=== PATIENT | female | born 1940 | race Caucasian/White ===

== ENCOUNTER 2021-04-17 15:41 | Emergency (ER) | payer MEDICARE, MEDICAID ==
[~2021-04-17] VITALS: Ht 157.5 cm; Wt 80.0 kg
[2021-04-17] MEDS ORDERED: ASPIRIN 325MG EC TABLET PO ONE (16:00)
[2021-04-17 16:19] LABS: BASOPHILS % 0.5 % (0.0-2.0); EOSINOPHILS % 1.2 % (0.0-5.0); HEMATOCRIT. 35.4 % (36.0-48.0); HEMOGLOBIN. 11.5 g/dL (12.0-16.0); LYMPHOCYTES % 22.8 % (20.0-50.0); MEAN CORPUSCULAR HEMOGLOBIN 27.6 pg (28.0-32.0); MEAN CORPUSCULAR VOLUME 84.8 fL (81.0-99.0); MEAN PLATELET VOLUME 7.2 fl (7.4-10.4); MONOCYTES % 5.2 % (2.0-8.0); NEUTROPHILS % 70.3 % (40.0-76.0); PLATELET 321 x1000/uL (130-400); RED BLOOD CELL COUNT 4.18 mill/uL (4.2-5.4); RED CELL DISTRIBUTION WIDTH 15.5 % (11.6-14.6)
[2021-04-17 16:23] LABS: CHLORIDE 106 mEq/L (98-107)
[2021-04-17] MEDS ORDERED: LEVETIRACETAM 500 MG in SODIUM CHLORIDE 0.9% 100 ML IV SCH (17:00)
[2021-04-17] MEDS ORDERED: DESMOPRESSIN ACETATE IV NR (17:00)
[2021-04-17] MEDS ORDERED: SODIUM CHLORIDE 0.9% IV NR (17:00)
[2021-04-17] MEDS ORDERED: LEVETIRACETAM 500MG PREMIX 100 ML IV ONE ×3 (17:00)
[2021-04-17 17:15] LABS: PARTIAL THROMBOPLASTIN TIME 23.9 sec (23.4-31.0); PROTHROMBIN TIME 11.1 sec (9.6-11.0)
[2021-04-17] MEDS ORDERED: METOCLOPRAMIDE HCL 10MG/2ML VIAL IV ONE (17:30)
[2021-04-17] MEDS ORDERED: IOHEXOL-350 100 ML BOTTLE ONE (18:29)
[2021-04-17 18:41] VITALS: BP 129/49
== END 2021-04-17 19:11 | disposition short-term general hospital (02) ==
LOC: ER 15:41 → CANBEDREQ 19:09 → ER 19:11
DX: I60.8 Other nontraumatic subarachnoid hemorrhage (principal); I10 Essential (primary) hypertension; R77.8 Other specified abnormalities of plasma proteins; E78.00 Pure hypercholesterolemia, unspecified; Z98.890 Other specified postprocedural states
CPT/HCPCS: 36415; 70450; 70496; 71045; 80053; 83605; 83690; 84484; 85025; 85610; 85730; 86850; 86900; 86901; 96365; 96375; 99291; J1953; J2597; J2765; J7050; Q9967